=== PATIENT | male | born 1955 | race Caucasian/White ===

== ENCOUNTER 2017-05-31 10:58 | Day surgery (SDC) | payer BC ==
--- NOTE | 2017-05-31 06:19 | History and Physical Report ---
DATE: 05/30/2017. CHIEF COMPLAINT AND HISTORY OF CHIEF COMPLAINT: This patient presents with a history of an intense cervical radiculopathy. His diagnostics show extensive spondylosis and disc abnormalities. A cervical stimulator has been in place since 2008. It recently malfunctioned, and evaluation showed a battery or generator depletion. He is here for battery or generator replacement on an outpatient basis. PAST MEDICAL HISTORY: Degenerative arthritis. PAST SURGICAL HISTORY: Spinal cord stimulator implant. MEDICATIONS ON ADMISSION: To be provided. ALLERGIES: None. REVIEW OF SYSTEMS: The patient is appropriate and in no acute distress. The remainder of the systems review is noncontributory. SOCIAL HISTORY: Caffeine. FAMILY HISTORY: Cancer. PHYSICAL EXAMINATION: General: Height and weight not available. Vital Signs: Not available. HEENT: Within normal limits. Lungs: Clear. Heart: Regular rate and rhythm. Abdomen: Nontender. Musculoskeletal: Examination of the musculoskeletal system shows the incisional site for the two peripheral nerve stimulators in the cervical region. The incisions are intact. A generator at the left midaxillary line is also identified. The incisional site appears to be intact. The underlying pain pattern is in the cervical spine with a bilateral radicular component into his shoulder, arms, hands, and fingers. Motor and sensory field function in the upper extremities is intact. Neurologic: Cranial nerves are intact. IMPRESSION: 1. CERVICAL RADICULOPATHY, ICD-10 CODE M54.13 AND M54.12. 2. CERVICAL STIMULATOR WITH DEPLETED BATTERY AND GENERATOR. PLAN: The patient is here for replacement of the stimulator generator or battery on an outpatient basis. The potential risks, side effects, and complications have all been carefully reviewed and discussed. He understands and has consented. JOB NUMBER: [id number] cc: Deidra Goldberg
[~2017-05-31 10:58] MED LIST: ACETAMINOPHEN 1,000 MG/100 ML BTL IV ONE; CEFAZOLIN 2 Gram 2 GM/50 ML BAG IVPB ONE; FAMOTIDINE 20MG TABLET PO ONE; MECLIZINE 25 MG TABLET PO ONE; METOCLOPRAMIDE 10 MG TABLET PO ONE
[2017-05-31] MEDS ORDERED: MIDAZOLAM HCL 2MG/2ML VIAL IV ONE (10:59)
[2017-05-31] MEDS ORDERED: FENTANYL PF 100MCG/2ML VIAL IV ONE (10:59)
[2017-05-31] MEDS ORDERED: *PACU ONLY* KETAMINE HCL 10 MG/ML (20ML) VIAL IV ONE (10:59)
[2017-05-31] MEDS ORDERED: PROPOFOL 10 MG/ML VIAL IV ONE (10:59)
[2017-05-31] MEDS ORDERED: BUPIVACAINE 0.5% W/EPI MPF 30 ML VIAL IVP ONE (10:59)
[2017-05-31] MEDS ORDERED: LIDOCAINE 2% MDV (20MG/ML) 20ML VIAL IV ONE (10:59)
[2017-05-31] MEDS ORDERED: LIDOCAINE 1% W/EPI 1:200,000 MPF 30ML SQ ONE (10:59)
[2017-05-31] MEDS ORDERED: CEFAZOLIN 1G VIAL IM ONE (10:59)
--- NOTE | 2017-06-01 15:49 | Operative Note - Ferro ---
DATE OF SURGERY: 05/31/17 PREOPERATIVE DIAGNOSES: 1. INTRACTABLE CERVICAL RADICULOPATHY, ICD-10 CODE = M54.13 AND M54.12. 2. SPINAL CORD STIMULATOR BATTERY DEPLETION. OPERATION: INCISION, SUBCUTANEOUS DISSECTION, AND REPLACEMENT OF INTERNAL GENERATOR MED[employer]IC SPINAL CORD STIMULATOR. SURGEON: KISHAN ESTRADA D.O. ANESTHESIA: LOCAL SEDATION. ANESTHESIA PROVIDER: EVY LEWIS CRNA. INDICATION: This patient presents with a history of a intractable cervical radiculopathy. A spinal cord stimulator in place with a battery depletion noted after the last several months of malfunctioning. Computer assessment identified the electrodes as working appropriately but the generator was depleted. He is here for battery or generator replacement. PROCEDURE: Intravenous line, vital sign monitoring, IV sedation, prepped and draped in sterile technique. Patient was placed in a modified Niño position left side up. The generator at the left mid axillary line. Sterile prep, sterile technique, and under imaging, the incisional site for the generator infiltrated, incision made, and subcutaneous dissection was conducted to the generator. The generator was then exteriorized and from the indwelling leads. The new Medtronic Programmable Rechargeable was placed onto the field and interfaced with the indwelling leads. A nonabsorbable suture as anchor was placed to secure the generator to the pouch. Antibiotic irrigation. Bovie for hemostasis. The incision was closed Vicryl for fascia, running subcuticular Vicryl for skin. Dermabond closure. Complex programming in the room was performed re-establishing appropriate impedances and stimulation patterns. He was transported to the Recovery Room stable. No side-effects from the procedure or the sedation. DISCHARGE INSTRUCTIONS WHEN STABLE: 1. Sites to remain clean and dry. The Dermabond will allow showering in 24 hours. He should not sit in or immerse in water. 2. The office will contact the patient at home in the next 2-3 days to set up an appointment in 7-10 days to evaluate the sites. Until then, he should keep his activity levels low and controlled. 3. Standard medications resumed including Levaquin, the antibiotic, 500 mg once a day for 14 days. All other instructions provided, numbers to contact, problems given. He was then prepared for discharge. cc: Dr. Graves JOB [facility]BER: [id number] [facility]
== END 2017-05-31 14:00 | disposition home or self-care (01) ==
LOC: SUR 10:58
PROVIDERS: ATTEND Pain Medicine Interventional Pain Medicine
DX: M54.13 Radiculopathy, cervicothoracic region (principal); M54.12 Radiculopathy, cervical region
CPT/HCPCS: 63685; 00300; J3010; J0690

== ENCOUNTER 2019-01-23 05:57 | Day surgery (SDC) | payer BC ==
[2019-01-23] MEDS ORDERED: LIDOCAINE 2% MDV (20MG/ML) 20ML VIAL IV ONE (05:58)
[2019-01-23] MEDS ORDERED: PROPOFOL 10 MG/ML VIAL IV ONE (05:58)
[2019-01-23] MEDS ORDERED: MIDAZOLAM HCL 2MG/2ML VIAL IV ONE (05:58)
[2019-01-23] MEDS ORDERED: *PACU ONLY* KETAMINE HCL 10 MG/ML (20ML) VIAL IV ONE (05:58)
[2019-01-23] MEDS ORDERED: FENTANYL PF 100MCG/2ML VIAL IV ONE (05:58)
[2019-01-23] MEDS ORDERED: METOCLOPRAMIDE 10 MG TABLET PO ONE (06:00)
[2019-01-23] MEDS ORDERED: ACETAMINOPHEN 1,000 MG/100 ML BTL IVPB ONE (06:00)
[2019-01-23] MEDS ORDERED: CEFAZOLIN 2 Gram 2 GM/50 ML BAG IVPB ONE (06:00)
[2019-01-23] MEDS ORDERED: MECLIZINE 25 MG TABLET PO ONE (06:00)
[2019-01-23] MEDS ORDERED: FAMOTIDINE 20MG TABLET PO ONE (06:00)
--- NOTE | 2019-01-23 06:23 | History and Physical - Ferro ---
CHIEF COMPLAINT/HISTORY OF CHIEF COMPLAINT: This patient with a history of an intractable post lumbar laminectomy radiculopathy has a spinal cord stimulator with an internal generator in place since 2013. A series of progressive change in his pain pattern have not adequately controlled throughout the current system. It was felt by converting to the new generator the aloomaiter technology with more program options and the ability to simultaneously run different programs would provide him with greater degrees of pain control. By his request he is here for a swap and exchange of his current generator to the new technology, aloomaiter. PAST MEDICAL HISTORY: Degenerative arthritis and radiculopathy. PAST SURGICAL HISTORY: Post lumbar laminectomy stimulator implant. MEDICATIONS ON ADMISSION: List to be provided. ALLERGIES: None. FAMILY/PSYCHOSOCIAL HISTORY: Social history - Caffeine. Family history - Cancer. SYSTEMS REVIEW: The patient is appropriate in no acute distress. The remainder of the systems review is noncontributory. PHYSICAL EXAMINATION: Height is 5'7", weight is 160. No vital signs. HEENT: Within normal limits. LUNGS: Clear. HEART: Rapid and regular. ABDOMEN: Nontender. MUSCULOSKELETAL: Examination of the musculoskeletal system shows the generator pouch in the left posterior gluteal margin. Both the midline incision and generator pouch are both intact. The underlying pain pattern is bilateral lower extremity radiculopathy. NEUROLOGIC: Cranial nerves are intact. IMPRESSION: 1. LUMBAR RADICULOPATHY, ICD-10 CODE M54.16 AND M54.17. 2. IMPLANTED SPINAL CORD STIMULATOR AND INTERNAL GENERATOR. PLAN: The patient is here for removal and replacement of the internal generator on an outpatient basis. The risks, side effects and complications have been reviewed and discussed. JOB NUMBER: [id number] [facility]
[2019-01-23] MEDS ORDERED: RINGERS SOLUTION,LACTATED 1,000 ML IV ONE (06:30)
[2019-01-23] MEDS ORDERED: CEFAZOLIN 1G VIAL IR ONE (08:21)
[2019-01-23] MEDS ORDERED: BUPIVACAINE 0.5% W/EPI MPF 30 ML VIAL SQ ONE (08:28)
[2019-01-23] MEDS ORDERED: LIDOCAINE 1% W/EPI 1:100,000 MDV 20 ML VIAL SQ ONE (08:28)
--- NOTE | 2019-01-23 09:29 | Operative Note - Ferro ---
DATE OF SURGERY: 01/23/2019 PREOPERATIVE DIAGNOSIS: 1. POST LUMBAR LAMINECTOMY SYNDROME, ICD-10 CODE M96.1 WITH RADICULOPATHY, ICD- 10 CODE M54.16 AND M54.17. 2. IMPLANTED SPINAL CORD STIMULATOR INTERNAL GENERATOR. OPERATION: FLUOROSCOPICALLY GUIDED REMOVAL AND REPLACEMENT OF INTERNAL PULSE GENERATOR WITH A NEW GENERATION WAVEWRITER [employer]. SURGEON: Alexander Schwab D.O. ANESTHESIA: Local sedation. ANESTHESIA PROVIDER: PETER Ames CRNA INDICATION: This patient presents with a history of intractable lumbar radiculopathy. Due to failure of therapy, a spinal cord stimulator trial was conducted success implanted with generator. Over the last number of years his sunil pattern has extended, the new generator has been unsuccessful in getting control of the new pain pattern. After evaluation and attempts conservatively to improve pain control failed, he is here for a battery exchange and going to the new generation WaveWriter with improved technology, programmability, and options. PROCEDURE: Intravenous line, vital sign monitoring, IV sedation. Prepped and draped sterile technique. The patient was positioned prone. Sterile prep at the left posterior gluteal margin generator pouch, skin infiltrated, an incision was made and subcutaneous dissection was conducted to open the pouch. The generator was exteriorized and from the indwelling leads. A new generator was placed onto the field and interfaced with the existing leads. Antibiotic irrigation, Bovie for hemostasis. The pouch was then revised extending it slightly superomedially to accommodate the generator and lead connections. Antibiotic irrigation and Bovie for hemostasis. The generator was placed into the pouch and then the incision was closed using Stratafix suture 2- 0 fascia and 3-0 skin. Dermabond closure. He was transported to the Recovery Room stable. No side effects related to the procedure. DISCHARGE INSTRUCTIONS: 1. The sites are to remain clean and dry. No showering or bathing in any way that would disrupt dressings. If it happens, contact the clinic. 2. Standard medications resumed including the antibiotic Levaquin 500 mg once a day for fourteen days. 3. He is to keep his activities controlled until he comes to the office in 7-10 days for the evaluation of the site. At that point we will clear him for further activities. He can shower with the Dermabond, but not sit in water. All other instructions provided. Numbers to contact if problems given. He was then discharged. JOB NUMBER: [id number] [facility]
== END 2019-01-23 09:06 | disposition home or self-care (01) ==
LOC: SUR 05:57
PROVIDERS: ATTEND Pain Medicine Interventional Pain Medicine
DX: T85.193A Other mechanical complication of implanted electronic neurostimulator, generator, initial encounter (principal); M54.16 Radiculopathy, lumbar region; M54.17 Radiculopathy, lumbosacral region; F17.210 Nicotine dependence, cigarettes, uncomplicated
CPT/HCPCS: 36416; 82948; 95972; C1820; J0690; J7120